=== PATIENT | male | born 1975 | race Caucasian/White ===

== ENCOUNTER 2017-03-09 08:00 | Emergency (ER) | payer OTHER ==
[~2017-03-09] VITALS: Ht 167.6 cm; Wt 81.6 kg
--- NOTE | ~2017-03-09 | CR172 ---
[facility] A Service [facility] RADIOLOGY TEXT RESULTS PATIENT: PATRICK FRIEDMAN LOCATION: [facility] : 77 UNIT #: [id number] AGE: [address]: Jane Sherman SEX: M ORDER DR: [id number] [facility]. [place], [place] [address] [id number] E MR#: [id number] Acc #: [id number] NAME: PATRICK FRIEDMAN : 1975 SEX: M STUDY DATE/TIME: 03/09/2017 UNIT: [facility] ROOM: STUDY DESCRIPTION: CR Knee 3 Views Lt Attending Physician: Jane Sherman P.A.-C. Ordering Physician: Jane Sherman P.A.-C. MEDICAL IMAGING REPORT This report is preliminary unless electronic signature is present EXAM Left knee 3 views 03/09/2017 0851 hours HISTORY Patient fell 2 days ago with trauma to the patella. Pain and swelling anteriorly at the knee. COMPARISON None. FINDINGS AP, lateral and sunrise views demonstrate trace synovial thickening or fluid in the suprapatellar bursa but no lipohemarthrosis. There is no fracture or dislocation. There is prepatellar soft tissue swelling and soft tissue swelling superficial to the inferior patellar tendon measuring up to 2.3 cm anterior to posterior. This could represent edema, hematoma. No foreign body seen. IMPRESSION Prepatellar and pre-inferior patellar tendon soft tissue swelling/edema or hematoma. There is trace synovial thickening or fluid in the suprapatellar bursa without lipohemarthrosis or fracture. No loose body seen. Dictated by... Nenita Peguero M.D. THIS IS AN ELECTRONICALLY VERIFIED REPORT Nenita Peguero M.D. at 03/10/2017 9:29 AM NAYLA/melquiades TD: 03/09/2017 16:04 [facility] A Service [facility] RADIOLOGY TEXT RESULTS PATIENT: PATRICK FRIEDMAN [id number] 77 UNIT #: [id number] AGE: [address]: Jane Sherman SEX: M ORDER DR: JOB #: [id number] MEDICAL IMAGING REPORT Page 1 of 1 COPY
== END 2017-03-09 09:50 | disposition home or self-care (01) ==
LOC: CFTX 08:00 → CED 08:00 → CFTX 08:44
DX: S83.412A Sprain of medial collateral ligament of left knee, initial encounter (principal); S80.02XA Contusion of left knee, initial encounter; R03.0 Elevated blood-pressure reading, without diagnosis of hypertension; Y93.66 Activity, soccer; Y92.322 Soccer field as the place of occurrence of the external cause
CPT/HCPCS: 29505; 73562; 99283